=== PATIENT | male | born 1995 | race Caucasian/White ===

== ENCOUNTER → 2021-08-30 16:25 | Outpatient (CLI) | payer BC, SELFPAY ==
--- NOTE | ~2021-08-30 | XR_ITS ---
[id number] DATE: 08/30/2021 16:45 INDICATION: Neck pain TECHNIQUE: Standing AP, open-mouth, lateral and swimmer views COMPARISON: None FINDINGS: There is straightening of the cervical spine. C1 and C2 are normally aligned and the odonto id process is intact. No fracture or dislocation or locked facet or prevertebral soft tissue swelling. Cervical interspaces are well preserved. IMPRESSION: Straightening; otherwise negative Reviewed, dictated and finalized at [facility]. Reviewed, dictated and finalized at [facility].
== END ==
PROVIDERS: PCP Emergency Medicine; Visit Provider Emergency Medicine
DX: M54.12 Radiculopathy, cervical region (principal)
CPT/HCPCS: 72040

== ENCOUNTER → 2023-01-17 11:19 | Outpatient (CLI) | payer BC, SELFPAY ==
--- NOTE | ~2023-01-17 | US_ITS ---
Thyroid ultrasound. Clinical History: Goiter Findings: Real-time sonography of the thyroid gland was performed. The right lobe measures 5.2 x 1.8 x 2.3 cm. The left lobe measures 5.4 x 1.8 x 2.2 cm. The isthmus is 2 mm in AP diameter. Thyroid parenchyma is diffusely heterogeneous. No discrete nodule seen. Impression: Heterogeneous thyroid parenchyma, without discrete nodule. Correlate with thyroid function tests, as indicated. Reviewed, dictated and finalized at location . Impression: Heterogeneous thyroid parenchyma, without discrete nodule. Correlate with thyro id function tests, as indicated.
== END ==
PROVIDERS: PCP Emergency Medicine; Visit Provider Internal Medicine
DX: E04.9 Nontoxic goiter, unspecified (principal)
CPT/HCPCS: 76536